=== PATIENT | male | born 1990 | race Hispanic/Latino ===

== ENCOUNTER 2016-12-13 12:06 | Observation (INO) | payer BC ==
[2016-12-13 12:11] VITALS: BMI 23.0
[2016-12-13] MEDS ORDERED: Sodium Chloride 0.9% 1,000 ML IV STA (12:36)
--- NOTE | 2016-12-13 12:47 | ED PDOC ---
HPI: Abdomen Time Seen by Provider: 12/13/16 12:27 Chief Complaint (Nursing): Abdominal Pain Chief Complaint (Provider): Abdominal pain History Per: Patient History/Exam Limitations: no limitations Onset/Duration Of Symptoms: Days Outside of [place] travel?: No Current Symptoms Are (Timing): Still Present Severity: Moderate Location Of Pain/Discomfort: LLQ Quality Of Discomfort: Sharp, "Pain" Associated Symptoms: Diarrhea Exacerbating Factors: Movement Additional History Per: Patient Additional Complaint(s): The pt is a 26yo male, presents to the ED for evaluation of left lower quadrant pain, present for 1.5 weeks but worsened today s/p doing some heavy lifting at home. Pt reports he was doing some yard work and 1.5 weeks ago had some abdominal pain after which he rested to help with his symptoms - pt then states he resumed lifting heavy objects today after which his symptoms returned. Pt reports associated diarrhea but denies any blood present. Additionally denies any groin or testicular pain. Of note, pt reports he had a fever 4 days ago which has now resolved. Pt currently denies any other medical complaints. Past Medical History Reviewed: Historical Data, Nursing Documentation, Vital Signs Vital Signs: Last Vital Signs Temp 98.6 F 12/13/16 12:12 Pulse 70 12/13/16 12:12 Resp 16 12/13/16 12:12 BP 158/84 H 12/13/16 12:12 Pulse Ox 100 12/13/16 17:56 - Medical History PMH: No Chronic Diseases - Surgical History Surgical History: No Surg Hx - Family History Family History: States: No Known Family Hx - Allergies Allergies/Adverse Reactions: Allergies Allergy/AdvReac Type Severity Reaction Status Date / Time No Known Allergies Allergy Verified 12/13/16 12:13 Review of Systems ROS Statement: Except As Marked, All Systems Reviewed And Found Negative Gastrointestinal: Positive for: Abdominal Pain (LLQ), Diarrhea Genitourinary Male: Negative for: Other (groin pain, testicular pain) Physical Exam - Reviewed Nursing Documentation Reviewed: Yes Vital Signs Reviewed: Yes - Physical Exam Appears: Positive for: Well, Non-toxic, No Acute Distress Head Exam: Positive for: ATRAUMATIC, NORMAL INSPECTION, NORMOCEPHALIC Skin: Positive for: Normal Color, Warm Eye Exam: Positive for: Normal appearance Neck: Positive for: Normal, Supple Cardiovascular/Chest: Positive for: Regular Rate, Rhythm Respiratory: Positive for: Normal Breath Sounds. Negative for: Respiratory Distress Gastrointestinal/Abdominal: Positive for: Soft, Tenderness (tenderness to left lower quadrant noted) Back: Positive for: L CVA Tenderness Extremity: Negative for: Deformity Neurologic/Psych: Positive for: Alert, Oriented - Laboratory Results Result Diagrams: 12/13/16 12:45 12/13/16 12:45 - ECG O2 Sat by Pulse Oximetry: 100 (RA) Pulse Ox Interpretation: Normal Medical Decision Making Medical Decision Making: Time: 1238 Impression: Abdominal pain Plan: * Bloodwork * US Abdomen * US Pelvis * Toradol 30 mg IV * IV fluids 15:37 US Abdomen FINDINGS: LIVER: Measures cm. Normal echogenicity of the liver parenchyma. No mass. No intrahepatic bile duct dilatation. GALLBLADDER: Unremarkable. No gallstones. COMMON BILE DUCT: Measures mm. No stones. No dilatation. PANCREAS: Unremarkable as visualized. No mass. No ductal dilatation. RIGHT KIDNEY: Measures cm. Normal echogenicity. No calculus, mass, or hydronephrosis. LEFT KIDNEY: Measures cm. Moderate left hydronephrosis. SPLEEN: Normal in size and contour. No mass. AORTA: No aneurysmal dilatation. IVC: Unremarkable. OTHER FINDINGS: None. IMPRESSION: Moderate left hydronephrosis. 15:39 US Pelvic FINDINGS: No gross bladder wall thickening is observed. Ureteral jets are not readily identified. No calculus is observed. The prostate gland is normal in size. IMPRESSION: As above. 17:43 CT abd and pelvis FINDINGS: LOWER THORAX: Unremarkable. LIVER: Unremarkable. GALLBLADDER AND BILE DUCTS: Unremarkable. PANCREAS: Unremarkable. No ductal dilatation. SPLEEN: Unremarkable. No splenomegaly. ADRENALS: Unremarkable. KIDNEYS AND URETERS: 2 mm calculus left ureterovesical junction with proximal hydronephrosis, hydroureter. No upper tract calculi identified. The right kidney is edematous. No focal perinephric fluid collection, urinoma identified. Unremarkable right kidney and ureter. BLADDER: Unremarkable. No calculus. REPRODUCTIVE: Unremarkable. APPENDIX: Unremarkable. Normal appendix. STOMACH AND BOWEL: Unremarkable. No obstruction. No gross mural thickening. Diverticulosis without an acute inflammatory component or other associated pathologic process. PERITONEUM: Unremarkable. No significant fluid collection. No free air. LYMPH NODES: Unremarkable. No enlarged lymph nodes. VASCULATURE: Unremarkable. No aortic aneurysm. BONES: No acute fracture. OTHER FINDINGS: None . IMPRESSION: Unilateral, left obstructive uropathy. Left hydroureter, hydronephrosis related to a 2 mm calculus at the left ureterovesical junction. The left kidney is edematous. No upper tract calculi identified. Scribe Attestation: Documented by Alice Whitfield acting as a scribe for Anupama Najera MD. Provider Attestation: All medical record entries made by the Scribe were at my direction and personally dictated by me. I have reviewed the chart and agree that the record accurately reflects my personal performance of the history, physical exam, medical decision making, and the department course for this patient. I have also personally directed, reviewed, and agree with the discharge instructions and disposition. Disposition - Clinical Impression Clinical Impression: Ureteral stone with hydronephrosis, Urinoma - Patient ED Disposition Is Patient to be Admitted: No Doctor Will See Patient In The: Office Counseled Patient/Family Regarding: Diagnosis, Need For Followup, Rx Given - Disposition Disposition: Routine/Home Disposition Time: 18:14 Condition: STABLE - POA Present On Arrival: None
[2016-12-13 12:57] LABS: BASO % 0.7 % (0.0-2.0); EOS # 0.1 K/uL (0.0-0.7); EOS % 1.2 % (0.0-4.0); HEMATOCRIT 41.7 % (35.0-51.0); LYMPH # 1.4 K/uL (1.0-4.3); LYMPH % 31.9 % (20.0-40.0); MEAN CELL VOLUME 84.9 fl (80.0-94.0); MEAN CORPUSCULAR HEMOGLOBIN 28.9 pg (27.0-31.0); MEAN CORPUSCULAR HGB CONC 34.1 g/dL (33.0-37.0); MONO # 0.5 K/uL (0.0-0.8); MONO % 10.6 % (0.0-10.0); NEUT # 2.4 K/uL (1.8-7.0); NEUT % 55.6 % (50.0-75.0); NRBC % 0.2 % (0.0-0.0); RED CELL DISTRIBUTION WIDTH 12.8 % (11.5-14.5); WHITE BLOOD COUNT 4.4 K/uL (4.8-10.8)
[2016-12-13 13:05] LABS: RBC URINE 126 /hpf (0-3); URINE BACTERIA OCC (<OCC); URINE BILIRUBIN NEGATIVE (NEGATIVE); URINE BLOOD LARGE (NEGATIVE); URINE COLOR AMBER (YELLOW); URINE GLUCOSE (UA) NEG (Normal); URINE KETONE NEGATIVE (NEGATIVE); URINE LEUKOCYTE ESTERASE NEG Leu/uL (Negative); URINE PROTEIN 100 mg/dL (NEGATIVE); URINE UROBILINOGEN 0.2-1.0 mg/dL (0.2-1.0); WBC URINE 4 /hpf (0-5)
[2016-12-13 13:20] LABS: BLOOD UREA NITROGEN 15 mg/dl (9-20); CALCIUM 9.2 mg/dL (8.4-10.2); CARBON DIOXIDE 23 mmol/L (22-30); CHLORIDE 103 mmol/L (98-107); GFR AFRICAN-AMERICAN > 60; GLUCOSE,RANDOM 81 mg/dL (75-110); POTASSIUM 4.1 MMOL/L (3.6-5.0); SODIUM 139 mmol/l (132-148)
--- NOTE | 2016-12-13 15:39 | US ---
HISTORY: left abd pain COMPARISON: None. TECHNIQUE: Sonographic evaluation of the abdomen. FINDINGS: LIVER: Measures cm. Normal echogenicity of the liver parenchyma. No mass. No intrahepatic bile duct dilatation. GALLBLADDER: Unremarkable. No gallstones. COMMON BILE DUCT: Measures mm. No stones. No dilatation. PANCREAS: Unremarkable as visualized. No mass. No ductal dilatation. RIGHT KIDNEY: Measures cm. Normal echogenicity. No calculus, mass, or hydronephrosis. LEFT KIDNEY: Measures cm. Moderate left hydronephrosis. SPLEEN: Normal in size and contour. No mass. AORTA: No aneurysmal dilatation. IVC: Unremarkable. OTHER FINDINGS: None. IMPRESSION: Moderate left hydronephrosis.
--- NOTE | 2016-12-13 15:41 | US ---
PROCEDURE: HISTORY: LLQ pain COMPARISON: TECHNIQUE: FINDINGS: No gross bladder wall thickening is observed. Ureteral jets are not readily identified. No calculus is observed. The prostate gland is normal in size. IMPRESSION: As above.
--- NOTE | 2016-12-13 17:46 | CT ---
PROCEDURE: CT Abdomen and Pelvis without intravenous or oral contrast HISTORY: left hydronephrosis, LLQ pain COMPARISON: None. TECHNIQUE: Technique Contiguous axial images of the abdomen and pelvis without intravenous or oral contrast. Radiation dose: Total exam DLP = mGy-cm. This CT exam was performed using one or more of the following dose reduction techniques: Automated exposure control, adjustment of the mA and/or kV according to patient size, and/or use of iterative reconstruction technique. FINDINGS: LOWER THORAX: Unremarkable. LIVER: Unremarkable. GALLBLADDER AND BILE DUCTS: Unremarkable. PANCREAS: Unremarkable. No ductal dilatation. SPLEEN: Unremarkable. No splenomegaly. ADRENALS: Unremarkable. KIDNEYS AND URETERS: 2 mm calculus left ureterovesical junction with proximal hydronephrosis, hydroureter. No upper tract calculi identified. The right kidney is edematous. No focal perinephric fluid collection, urinoma identified. Unremarkable right kidney and ureter. BLADDER: Unremarkable. No calculus. REPRODUCTIVE: Unremarkable. APPENDIX: Unremarkable. Normal appendix. STOMACH AND BOWEL: Unremarkable. No obstruction. No gross mural thickening. Diverticulosis without an acute inflammatory component or other associated pathologic process. PERITONEUM: Unremarkable. No significant fluid collection. No free air. LYMPH NODES: Unremarkable. No enlarged lymph nodes. VASCULATURE: Unremarkable. No aortic aneurysm. BONES: No acute fracture. OTHER FINDINGS: None . IMPRESSION: Unilateral, left obstructive uropathy. Left hydroureter, hydronephrosis related to a 2 mm calculus at the left ureterovesical junction. The left kidney is edematous. No upper tract calculi identified.
[2016-12-13 19:21] VITALS: BP 128/78; PULSE 78; RESP 20; TEMP 97.6; O2SAT 98
[2016-12-13] MEDS ORDERED: Naloxone 0.4 mg/ml Inj (Adult) ONE ×2 (20:46→20:49)
== END 2016-12-13 19:22 | disposition home or self-care (01) ==
LOC: H.ER 12:06 → H.EROBSV 14:30
PROVIDERS: ADMIT Emergency Medicine; ATTEND Emergency Medicine
DX: N13.2 Hydronephrosis with renal and ureteral calculous obstruction (principal); R19.7 Diarrhea, unspecified
CPT/HCPCS: 74176; 76700; 76856; 80048; 81003; 85025; 99282; G0378; J1885; J7040